=== PATIENT | female | born 1955 ===

== ENCOUNTER → 2017-03-12 | Outpatient (CLI) | payer BC ==
--- NOTE | 2017-03-13 02:21 | REP ---
Clinical: Equivocal tuberculin test . Comparison: None . Technique: PA and lateral. Findings: The mediastinum and cardiac silhouette are normal. The lung hawk demonstrate chronic-appearing changes without acute consolidation, effusion, or pneumothorax. The skeletal structures are intact and normal. Impression: 1. No acute cardiopulmonary process. Signed by Dimitry Mancia MD 03/13/2017 02:13 A
== END ==
LOC: M SMT 15:29
DX: R76.11 Nonspecific reaction to tuberculin skin test without active tuberculosis (principal)